=== PATIENT | male | born 1975 | race Caucasian/White ===

== ENCOUNTER 2018-08-27 14:24 | Emergency (ER) | payer MEDICAID ==
[~2018-08-27] VITALS: Ht 182.9 cm; Wt 111.1 kg
[2018-08-27] MEDS ORDERED: LIDOCAINE 1% INJ 50 ML MDV IJ ONE ×2 (14:57→15:30)
[2018-08-27] MEDS ORDERED: IBUPROFEN 400 MG TABLET PO ONE (15:30)
[2018-08-27] MEDS ORDERED: TDAP [DIPH/PERTUSSIS/TET] 0.5 ML VIAL IM ONE (15:30)
[2018-08-27] MEDS ORDERED: MUPIROCIN OINT 2% 22 GM TUBE TP ONE (15:30)
--- NOTE | 2018-08-27 16:31 | NUR ---
TD R deltoid IM .5ML lot# [id number] EXP 10/04/20. pT FOR DISCHARGE-aci GIVEN VERBALIZED UNDERSTANDING hOME AMBULATORY IN STABLE CONDITION
[2018-08-27 16:33] VITALS: BP 142/85
== END 2018-08-27 16:33 | disposition home or self-care (01) ==
LOC: ER 14:24
DX: L03.011 Cellulitis of right finger (principal); F17.200 Nicotine dependence, unspecified, uncomplicated
CPT/HCPCS: 10060; 99283; 99406; A4606; A6402; J3490; Z7610